=== PATIENT | male | born 1955 | race Two or more races ===

== ENCOUNTER 2016-04-26 07:08 | Day surgery (SDC) | payer BC ==
[~2016-04-26] VITALS: Ht 170.2 cm; Wt 80.7 kg
[2016-04-26] MEDS ORDERED: LISI1TAB4 PO (07:33)
[2016-04-26] MEDS ORDERED: FENO48TA4 PO (07:33)
[2016-04-26] MEDS ORDERED: GLIP-173 PO (07:33)
[2016-04-26] MEDS ORDERED: SITA1TBM4 PO (07:33)
[2016-04-26] MEDS ORDERED: FLUO90CA5 PO (07:33)
[2016-04-26] MEDS ORDERED: METF500T PO (07:33)
[2016-04-26] MEDS ORDERED: PANT40TA4 PO (07:34)
[2016-04-26] MEDS ORDERED: SIMV5TAB50 PO (07:34)
[2016-04-26 07:43] VITALS: Ht 170.2 cm; Wt 80.7 kg
[2016-04-26] MEDS ORDERED: LIDOCAINE 2% (SDV) 5 ML INJ ONE (08:44)
[2016-04-26] MEDS ORDERED: PROPOFOL 40 ML ONE (08:44)
[2016-04-26 08:51] VITALS: BP 132/72; PULSE 94; RESP 20
[2016-04-26 10:22] VITALS: BP 127/73; RESP 18
--- NOTE | 2016-04-26 11:46 | GILP ---
DATE OF PROCEDURE: 04/26/2016 PROCEDURE PERFORMED: Colonoscopy with multiple hot snare polypectomies, endo clipping. INDICATION: A 60-year-old male undergoing this procedure for screening colonoscopy. The risks of t he procedure, related and unrelated complications, anesthetic risks, alternatives discussed and info rmed consent was obtained. DESCRIPTION OF PROCEDURE: Patient was brought to the GI lab, sedated by Dr. Delgado. After obtainin g sedation, digital examination done. Sphincter tone was normal. No mass was felt. Scope was pass ed with much ease into rectum and advanced slowly all the way up to 20 to 25 cm, there was a 1.5 cm polyp identified. This polyp was removed by hot snare technique. While we were applying the cauter y, suddenly there was a gush of stool like a river, occluding the visibility. The polyp had some g apping, so 2 endoclips were successfully deployed. No underlying fiber was visible. This is a prev entive measure for the perforation. Scope was then advanced further. There was another polyp ident ified at 35 cm, again removed by hot snare technique. The preparation was somewhat inadequate, cert ainly in between clarity. When we are about to do a polypectomy, there will be a gush of liquidy s tool with solid particles in that will come and preclude the visibility during the snaring process. So this time decided to go all the way up to the cecum. Scope was advanced all the way into the ce cum. Appendiceal orifice identified, covered with opaque colored stool, but the orifice could be se en. Again the preparation on the right side was inadequate. There was a polyp there also which was probably less than 1 cm got lost in between the stool. While coming out, mucosa thoroughly inspect ed. The rest of the polyp was successfully removed by hot snare technique. Each polyp was 1.5 to 2 cm in diameter and from 20 to 70, totally 6 polyps were removed and at 25 cm redeployed 2 endoclip s closing the wider gap as a prophylactic measure to prevent of perforation. The rest of the colon was normal. Diverticulitis seen also in the left side of the colon. IMPRESSION: 1. Mild diverticulosis, left side of the colon. 2. Six polyps, each one ranging in size from 1.5 to 2 cm, successfully removed by hot snare technBrandlive ue. Five polyps were retrieved. 3. Two endoclips successfully deployed at the polypectomy site to prevent free perforation. 4. Negative all the way into the cecum. 5. There are or 2 polyps which I missed in the stool. 6. Preparation was inadequate. PLAN: At this point is to review the histopathology of the polyp and also ____ diverticulosis. Pat ient definitely needs a repeat colonoscopy in 1 year to remove the 1 or 2 polyps which were lost in between the stool. Also look for the development of new polyps, since patient had almost more than 6 polyps. Dictated By: ANTONY OSORIO/NIRMAL Conf#: [id number] DID#: [id number]
== END 2016-04-26 11:12 | disposition home or self-care (01) ==
LOC: GIL 07:08
PROVIDERS: ATTEND Internal Medicine Gastroenterology
DX: Z12.11 Encounter for screening for malignant neoplasm of colon (principal); K63.5 Polyp of colon; K57.90 Diverticulosis of intestine, part unspecified, without perforation or abscess without bleeding; I10 Essential (primary) hypertension; E11.9 Type 2 diabetes mellitus without complications; I25.10 Atherosclerotic heart disease of native coronary artery without angina pectoris; E66.9 Obesity, unspecified; Z68.27 Body mass index [BMI] 27.0-27.9, adult; J44.9 Chronic obstructive pulmonary disease, unspecified
CPT/HCPCS: 82962; 88305